=== PATIENT | female | born 1995 | race African-American/Black ===

== ENCOUNTER 2019-03-30 18:23 | Emergency (ER) | payer MEDICAID ==
[~2019-03-30] VITALS: Ht 170.2 cm; Wt 70.8 kg
[2019-03-30 18:51] VITALS: BP 108/70
--- NOTE | 2019-03-30 19:38 | Emergency Room Report ---
History of Present Illness General Chief Complaint: Pain Source: Patient Present Illness HPI 23 YO female presents to the ED c/o Pain swelling and erythema to the right hand rapidly progressive x 1 week. Pt. reports mild swelling x 2 month. Pt. concerned due to rapid progression of her symptoms. Pt. 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 Pt. denies familial hx of cancer. Pt. denies trauma or fall. Pt. reports that she completed physical therapy/rehab and did not have symptoms or pain. Pt. is right hand dominant. She denies fevers or chills. She denies recent open wounds or insect bites. She denies any aggravating or relieving symptoms at this time. Denies paresthesias. Denies loss of gross motor movements. Allergies: Coded Allergies: TRAMADOL (Verified Allergy, Unknown, 03/30/19) Patient History Past Medical History: see triage record Past Surgical History: other - right index finger amputation in 2018. Last Menstrual Period: 01/29/19 Now: Yes - possible : 1 Para: 0 Reviewed Nursing Documentation: PMH: Agreed; PSxH: Agreed Nursing Documentation-PMH Past Medical History: No History, Except For Hx Cardiac Problems: No - scoliosis, cancer Review of Systems All Other Systems: negative except mentioned in HPI Physical Exam Vital Signs Date Time Temp Pulse Resp B/P (MAP) Pulse Ox O2 Delivery O2 Flow Rate FiO2 03/30/19 18:34 98.8 103 20 108/70 (83) 98 Room Air Sp02 EP Interpretation: reviewed, normal General Appearance: no apparent distress, alert, GCS 15, non-toxic Head: normocephalic, atraumatic Eyes: bilateral eye normal inspection, bilateral eye PERRL ENT: hearing grossly normal, normal voice Neck: full range of motion Respiratory: lungs clear, normal breath sounds, speaking full sentences Cardiovascular #1: regular rate, rhythm Musculoskeletal: normal range of motion, gait/station normal, tender - TTP to the soft tissue and surgical scar on the right hand where index finger would anatomically be. Right index finger is surgically absent. , swelling - along surgical scar and ST where right index finger is surgically absent. , other - erythema and warmth noted. Neurologic: alert, motor strength/tone normal, oriented x3, sensory intact, responsive, speech normal, grossly normal Psychiatric: judgement/insight normal Skin: other - erythema, warmth and swelling to the area localized to the site of the right index finger amputation. No open wounds. Medical Decision Making PA Attestation Dr. Frias is my supervising Physician whom patient management has been discussed with. Diagnostic Impression: Primary Impression: Cellulitis Qualified Codes: L03.90 - Cellulitis, unspecified Additional Impression: Hand pain, right ER Course Pt. presents to the ED c/o pain, swelling, and erythema of Right dorsal hand, previous amputation last year. onset 2 months, fast progression x 1 week. Ddx considered but are not limited to cellulitis, osteomyelitis/sarcoma/ mass, fracture, d/L, gout, retained fb just to name a few. Vital signs: are WNL, pt. is afebrile H&PE are most consistent with suspected Cellulitis of the right hand. ORDERS: -Urine Hcg: Negative -X-ray right hand 3 views: WNL ED INTERVENTIONS: None required at this time. DISCHARGE: At this time pt. is stable for d/c to home. Will provide printed patient care instructions, and any necessary prescriptions. Care plan and follow up instructions have been discussed with the patient prior to discharge. Other X-Ray Diagnostic Results Other X-Ray Diagnostic Results : X-Ray ordered: Right Hand # of Views/Limited Vs Complete: 3 View Indication: Pain EP Interpretation: Yes PA Xray: Interpretation reviewed, by supervising MD, and agrees with findings. Interpretation: no dislocation, no fractures, other - index finger is surgically absent, ST swelling noted in location of amputation. Impression: Other - abnormal Electronically Signed by: Rachel Galan PA-C Last Vital Signs Date Time Temp Pulse Resp B/P (MAP) Pulse Ox O2 Delivery O2 Flow Rate FiO2 03/30/19 18:51 98.8 103 20 108/70 98 Room Air Status: improved Disposition: HOME, SELF-CARE Condition: Stable Scripts Ibuprofen* (MOTRIN*) 400 Mg Tablet 400 MG ORAL THREE TIMES A DAY, #30 TAB 0 Refills Prov: Rachel Galan 03/30/19 Amoxicillin/Potassium Clav 875-125* (AUGMENTIN 875-125 TABLET*) 1 Each Tablet 1 TAB ORAL TWICE A DAY for 7 Days, #14 TAB Prov: Rachel Galan 03/30/19 Hydrocodone Bit/Acetaminophen 5-325* (NORCO 5-325*) 1 Each Tablet 1 TAB ORAL Q6H PRN for For Pain, #15 TAB 0 Refills Prov: Rachel Galan 03/30/19 Departure Forms: Return to School Return to School On: Apr 02, 2019 School Release Restrictions: None Other School Release Restrictions: May return Sooner if Symptoms have resolved. Return to Full Activity: Apr 02, 2019 Patient Instructions: Cellulitis, [id number] Additional Instructions: Take medications as directed. Follow up with an ONCOLOGIST/ orthopedic oncologist in 3-5 days, even if your symptoms have resolved. Return sooner to ED if new symptoms occur, or current symptoms become worse. Do not drink alcohol, drive, or operate heavy machinery while taking [place] as this may cause drowsiness. - Please note that this Emergency Department Report was dictated using [employer] studio technology software, occasionally this can lead to erroneous entry secondary to interpretation by the dictation equipment. Rachel Galan Mar 30, 2019 19:38
[2019-03-30] MEDS ORDERED: AUGMENTIN 875-1 EAC1 ORAL (19:43)
[2019-03-30] MEDS ORDERED: NORCO 5-325 TA1 EACH ORAL (19:43)
[2019-03-30] MEDS ORDERED: IBUPROFEN400 MG ORAL (19:43)
[2019-03-30 19:59] VITALS: BP 106/76
--- NOTE | 2019-03-31 16:58 | Diagnostic Imaging Report ---
Indication: Right hand pain Technique: 3 views right hand Comparison: none Findings: The second digit is absent. No acute fractures. No dislocations. Impression: Absent second digit Note acute bony trauma
== END 2019-03-30 21:00 | disposition home or self-care (01) ==
LOC: EMR 19:10
DX: L03.113 Cellulitis of right upper limb (principal); M25.541 Pain in joints of right hand; Z89.021 Acquired absence of right finger(s); Z88.8 Allergy status to other drugs, medicaments and biological substances; Z85.9 Personal history of malignant neoplasm, unspecified
CPT/HCPCS: 73130; 81025; Z7502; 99283